=== PATIENT | female | born 2000 | race Caucasian/White ===

== ENCOUNTER 2021-01-18 12:05 | Emergency (ER) | payer OTHER ==
[~2021-01-18] VITALS: Ht 167.6 cm; Wt 99.8 kg
[2021-01-18] MEDS ORDERED: VASOTEC20 MG PO (12:23)
[2021-01-18] MEDS ORDERED: IBUPROFEN 800800 M1 PO (14:09)
[2021-01-18 15:03] VITALS: BP 129/47
== END 2021-01-18 15:03 | disposition home or self-care (01) ==
LOC: M.ERS 12:05
DX: S42.401A Unspecified fracture of lower end of right humerus, initial encounter for closed fracture (principal); S93.401A Sprain of unspecified ligament of right ankle, initial encounter; S80.811A Abrasion, right lower leg, initial encounter; Z79.899 Other long term (current) drug therapy; W18.30XA Fall on same level, unspecified, initial encounter; Y93.89 Activity, other specified; Y92.89 Other specified places as the place of occurrence of the external cause; Y99.9 Unspecified external cause status